=== PATIENT | female | born 1990 | race Caucasian/White ===

== ENCOUNTER → 2024-02-18 15:52 | Outpatient (REF) | payer BC, SELFPAY | LOC: PNTC 15:52 | PROVIDERS: ATTENDING PHYSICIAN Obstetrics & Gynecology | DX: Z36.0 Encounter for antenatal screening for chromosomal anomalies (principal); Z36.82 Encounter for antenatal screening for nuchal translucency | CPT/HCPCS: 76801; 76813 ==

== ENCOUNTER → 2024-04-12 15:50 | Outpatient (REF) | payer BC, SELFPAY | LOC: PNTC 15:50 | PROVIDERS: ATTENDING PHYSICIAN Obstetrics & Gynecology | DX: Z34.82 Encounter for supervision of other normal pregnancy, second trimester (principal); O09.529 Supervision of elderly multigravida, unspecified trimester | CPT/HCPCS: 76805 ==

== ENCOUNTER 2024-06-24 14:35 | Observation (INO) | payer BC, SELFPAY ==
[2024-06-24 14:56] VITALS: BP 149/88; BMI 32.8
[2024-06-24 15:18] LABS: % Basophils 0.3 % (0-2); % Eosinophils 0.5 % (0-6); % Immature Granulocytes 0.7 % (0-0.5); % Lymphocytes 14.8 % (20.5-51.1); % Monocytes 7.4 % (1.7-9.3); % Neutrophils 76.3 % (42.2-75.2); Absolute Eosinophils 0.1 10^3/uL (0-0.7); Absolute Immature Granulocytes 0.1 10^3/uL (0-0.05); Absolute Lymphocytes 1.9 10^3/uL (1.2-3.4); Absolute Neutrophils 9.8 10^3/uL (1.4-6.5); Hemoglobin 13.2 g/dL (12.0-16.0); Mean Corp Hgb Conc. 33.8 g/dL (33.0-37.0); Mean Corpuscular Hgb 28.5 pg (27.0-31.0); Mean Corpuscular Volume 84.2 fL (81.0-99.0); Mean Platelet Volume 10.5 fL (7.4-10.4); Nucleated Red Blood Cells % 0 %; Platelet Count 233 10^3/uL (130-400); Red Blood Cell Count 4.63 10^6/uL (4.20-5.40); Red Cell Dist. Width 13.2 % (11.5-14.5); White Blood Cell Count 12.8 10^3/uL (4.8-10.8)
[2024-06-24] MEDS: CELESTONE SOLUSPAN 2 MG IM (15:56)
== END 2024-06-24 18:03 | disposition short-term general hospital (02) ==
LOC: LDRP 14:35
PROVIDERS: ADMITTING PHYSICIAN Obstetrics & Gynecology; FAMILY PHYSICIAN Family Medicine
DX: O35.BXX0 Maternal care for other (suspected) fetal abnormality and damage, fetal cardiac anomalies, not applicable or unspecified (principal); Z3A.31 31 weeks gestation of pregnancy; Z82.49 Family history of ischemic heart disease and other diseases of the circulatory system; Z83.6 Family history of other diseases of the respiratory system
CPT/HCPCS: 76805; 85025; 86850; 86900; 86901; G0378

== ENCOUNTER 2024-08-21 19:38 | Inpatient (IN) | payer BC, SELFPAY ==
[2024-08-21 19:48] VITALS: BP 125/75; BMI 36.7
[2024-08-21 20:43] LABS: % Basophils 0.3 % (0-2); % Eosinophils 0.3 % (0-6); % Immature Granulocytes 0.5 % (0-0.5); % Lymphocytes 16.3 % (20.5-51.1); % Monocytes 8.8 % (1.7-9.3); % Neutrophils 73.8 % (42.2-75.2); Absolute Immature Granulocytes 0.1 10^3/uL (0-0.05); Absolute Lymphocytes 1.7 10^3/uL (1.2-3.4); Absolute Monocytes 0.9 10^3/uL (0.1-0.6); Absolute Neutrophils 7.5 10^3/uL (1.4-6.5); Hemoglobin 11.4 g/dL (12.0-16.0); Mean Corp Hgb Conc. 33.5 g/dL (33.0-37.0); Mean Corpuscular Hgb 28.2 pg (27.0-31.0); Mean Corpuscular Volume 84.2 fL (81.0-99.0); Mean Platelet Volume 10.7 fL (7.4-10.4); Nucleated Red Blood Cells % 0 %; Platelet Count 212 10^3/uL (130-400); Red Blood Cell Count 4.04 10^6/uL (4.20-5.40); Red Cell Dist. Width 13.4 % (11.5-14.5); White Blood Cell Count 10.2 10^3/uL (4.8-10.8)
[2024-08-21] MEDS: CYTOTEC 25 MICROGRAM VAG (20:48)
[2024-08-22] MEDS: CYTOTEC 50 MICROGRAM PO (05:28)
[2024-08-22] MEDS: BRETHINE 250 MCG SC (07:41)
[2024-08-22] MEDS: CYTOTEC PO ×3 (09:08→18:35)
[2024-08-22] MEDS: PITOCIN 30 UNITS/NSS 500 ML IV ×2 (09:32→19:15)
[2024-08-22] MEDS: LR 1000 IV (09:32)
[2024-08-22] MEDS: STADOL 1 MG IV (16:37)
[2024-08-22] MEDS: XYLOCAINE-MPF 1% VIAL 30 ML INFIL (19:15)
[2024-08-23 04:31] LABS: Hematocrit 35.2 % (37.0-47.0); Hemoglobin 11.4 g/dL (12.0-16.0)
[2024-08-23] MEDS: SENOKOT-S 1 TABLET PO (08:30)
[2024-08-23] MEDS: PRENATAL PLUS 1 TABLET PO (08:30)
[2024-08-23 15:48] LABS: Syphilis/T. pallidum Ab Reflex Negative (Negative)
[2024-08-24] MEDS: PRENATAL PLUS PO (08:09)
== END 2024-08-24 09:15 | disposition home or self-care (01) | DRG 807 ==
LOC: LDRP 19:38
PROVIDERS: Obstetrics & Gynecology; ADMITTING PHYSICIAN Obstetrics & Gynecology
PROC: 3E0P7VZ Introduction of Hormone into Female Reproductive, Via Natural or Artificial Opening (ICD-10-PCS; 2024-08-21)
PROC: 0UQMXZZ Repair Vulva, External Approach (ICD-10-PCS; 2024-08-22)
PROC: 10907ZC Drainage of Amniotic Fluid, Therapeutic from Products of Conception, Via Natural or Artificial Opening (ICD-10-PCS; 2024-08-22)
PROC: 10E0XZZ Delivery of Products of Conception, External Approach (ICD-10-PCS; 2024-08-22)
DX: O76 Abnormality in fetal heart rate and rhythm complicating labor and delivery (principal); Z37.0 Single live birth; Z3A.39 39 weeks gestation of pregnancy; O77.0 Labor and delivery complicated by meconium in amniotic fluid; O70.0 First degree perineal laceration during delivery; O69.2XX0 Labor and delivery complicated by other cord entanglement, with compression, not applicable or unspecified
CPT/HCPCS: 88307; 85014; 85018; 85025; 86780; 86850; 86900; 86901